=== PATIENT | female | born 1965 | race Caucasian/White ===

== ENCOUNTER 2017-01-26 16:12 | Emergency (ER) | payer OTHER ==
[2017-01-26] MEDS ORDERED: SODIUM CHLORIDE 0.9% 1,000 ML IV STA (16:33)
--- NOTE | 2017-01-26 16:36 | ED ---
General Adult HPI - General Chief complaint: Chest Pain Stated complaint: Chest Pain Time Seen by Provider: 01/26/17 16:33 Source: patient, RN notes reviewed, old records reviewed Mode of arrival: wheelchair Limitations: no limitations - History of Present Illness Initial comments: This is a 51-year-old female ER prevention of chest pain. Patient is having chest pain with radiation to left arm. Patient has no history of chest pain, no history of her blood pressure normally claustrum no diabetes nonsmoker. History of multiple surgeries. Patient denies fever no cough no congestion or shortness of breath no diaphoresis. - Related Data Home Medications Medication Instructions Recorded Confirmed ALPRAZolam [Xanax] 1 mg PO Q12H PRN 01/26/17 01/26/17 Ascorbic Acid [Vitamin C] 500 mg PO DAILY 01/26/17 01/26/17 Cholecalciferol [Vitamin D3] 1,000 unit PO DAILY 01/26/17 01/26/17 Cranberry Fruit Concentrate 450 mg PO DAILY 01/26/17 01/26/17 [Cranberry] Cyanocobalamin [Vitamin B-12 1,000 mcg SQ Q14D 01/26/17 01/26/17 Injection] Cyanocobalamin [Vitamin B-12] 500 mcg PO DAILY 01/26/17 01/26/17 DULoxetine HCL [Cymbalta] 30 tab PO BID 01/26/17 01/26/17 Estradiol 2 mg PO DAILY 01/26/17 01/26/17 Gabapentin 800 mg PO TID 01/26/17 01/26/17 Garcinia 1 tab PO DAILY 01/26/17 01/26/17 Garlic 1 tab PO DAILY 01/26/17 01/26/17 Hydrocodone/Acetaminophen [Lorcet 1 tab PO Q8H PRN 01/26/17 01/26/17 Hd 10-325 mg Tablet] Ipratropium/Albuterol Sulfate 1 puff INHALATION RT-QID 01/26/17 01/26/17 [Combivent Respimat Inhaler] Milk Thistle 150 mg PO DAILY 01/26/17 01/26/17 Omeprazole 40 mg PO BID 01/26/17 01/26/17 Zolpidem [Ambien] 10 mg PO HS PRN 01/26/17 01/26/17 traMADol HCL [Ultram] 50 mg PO DAILY PRN 01/26/17 01/26/17 Previous Rx's Medication Instructions Recorded Naproxen [Naprosyn] 500 mg PO Q12HR #60 tab 01/26/17 Allergies Allergy/AdvReac Type Severity Reaction Status Date / Time cephalexin [From Keflex] Allergy Swelling Verified 01/26/17 16:55 Review of Systems ROS Statement: Those systems with pertinent positive or pertinent negative responses have been documented in the HPI. ROS Other: All systems not noted in ROS Statement are negative. Past Medical History Past Medical History: No Reported History History of Any Multi-Drug Resistant Organisms: None Reported Past Surgical History: Appendectomy, Section, Hysterectomy, Orthopedic Surgery, Tonsillectomy Past Psychological History: No Psychological Hx Reported Smoking Status: Current every day smoker Past Alcohol Use History: None Reported Past Drug Use History: None Reported General Exam Limitations: no limitations General appearance: alert, in no apparent distress Head exam: Present: atraumatic, normocephalic, normal inspection Eye exam: Present: normal appearance, PERRL, EOMI. Absent: scleral icterus, conjunctival injection, periorbital swelling ENT exam: Present: normal exam, mucous membranes moist Neck exam: Present: normal inspection. Absent: tenderness, meningismus, lymphadenopathy Respiratory exam: Present: normal lung sounds bilaterally. Absent: respiratory distress, wheezes, rales, rhonchi, stridor Cardiovascular Exam: Present: regular rate, normal rhythm, normal heart sounds. Absent: systolic murmur, diastolic murmur, rubs, gallop, clicks GI/Abdominal exam: Present: soft, normal bowel sounds. Absent: distended, tenderness, guarding, rebound, rigid Extremities exam: Present: normal inspection, full ROM, normal capillary refill. Absent: tenderness, pedal edema, joint swelling, calf tenderness Back exam: Present: normal inspection Neurological exam: Present: alert, oriented X3, CN II-XII intact Psychiatric exam: Present: normal affect, normal mood Skin exam: Present: warm, dry, intact, normal color. Absent: rash Course Vital Signs 01/26/17 16:18 Temperature 98.2 F Pulse Rate 69 Respiratory 18 Rate Blood Pressure 119/75 O2 Sat by Pulse 98 Oximetry - Reevaluation(s) Reevaluation #1: 01/26/17 18:07 Patient having no acute stroke heart or chest pain, no acute shortness of breath Reevaluation #2: 01/26/17 18:08 Greater than 15 minutes very low risk for heart disease, advised to quit smoking , questions answered regarding muscle strain and sprain. Patient will be discharged home Medical Decision Making - Medical Decision Making 51 female here for evaluation of left-sided neck pain and left arm pain. EKG and x-ray negative troponin is negative. Patient does have tenderness over left trapezius worse with left shoulder movement, patient will be discharged home with anti-inflammatories - Lab Data Result diagrams: 01/26/17 16:53 01/26/17 16:53 Lab Results 01/26/17 01/26/17 01/26/17 Range/Units 16:53 16:53 16:53 WBC 6.0 (3.8-10.6) k/uL RBC 4.53 (3.80-5.40) m/uL Hgb 13.9 (11.4-16.0) gm/dL Hct 42.6 (34.0-46.0) % MCV 94.0 (80.0-100.0) fL MCH 30.7 (25.0-35.0) pg MCHC 32.7 (31.0-37.0) g/dL RDW 11.9 (11.5-15.5) % Plt Count 201 (150-450) k/uL Neutrophils % 46 % Lymphocytes % 40 % Monocytes % 7 % Eosinophils % 3 % Basophils % 1 % Neutrophils # 2.8 (1.3-7.7) k/uL Lymphocytes # 2.4 (1.0-4.8) k/uL Monocytes # 0.4 (0-1.0) k/uL Eosinophils # 0.2 (0-0.7) k/uL Basophils # 0.1 (0-0.2) k/uL PT (9.0-12.0) sec INR (<1.1) APTT (22.0-30.0) sec Sodium 140 (137-145) mmol/L Potassium 5.2 H (3.5-5.1) mmol/L Chloride 104 (98-107) mmol/L Carbon Dioxide 27 (22-30) mmol/L Anion Gap 9 mmol/L BUN 15 (7-17) mg/dL Creatinine 0.66 (0.52-1.04) mg/dL Est GFR (MDRD) Af Amer >60 (>60 ml/min/1.73 sqM) Est GFR (MDRD) Non-Af >60 (>60 ml/min/1.73 sqM) Glucose 65 L (74-99) mg/dL Calcium 9.4 (8.4-10.2) mg/dL Magnesium 1.7 (1.6-2.3) mg/dL Total Bilirubin 1.6 H (0.2-1.3) mg/dL AST 123 H (14-36) U/L ALT 98 H (9-52) U/L Alkaline Phosphatase 59 (38-126) U/L Total Creatine Kinase 97 (30-135) U/L CK-MB (CK-2) 0.8 (0.0-2.4) ng/mL CK-MB (CK-2) Rel Index 0.8 Troponin I <0.012 (0.000-0.034) ng/mL NT-Pro-B Natriuret Pep pg/mL Total Protein 7.9 (6.3-8.2) g/dL Albumin 4.5 (3.5-5.0) g/dL Lipase 87 (23-300) U/L 01/26/17 01/26/17 Range/Units 16:53 16:53 WBC (3.8-10.6) k/uL RBC (3.80-5.40) m/uL Hgb (11.4-16.0) gm/dL Hct (34.0-46.0) % MCV (80.0-100.0) fL MCH (25.0-35.0) pg MCHC (31.0-37.0) g/dL RDW (11.5-15.5) % Plt Count (150-450) k/uL Neutrophils % % Lymphocytes % % Monocytes % % Eosinophils % % Basophils % % Neutrophils # (1.3-7.7) k/uL Lymphocytes # (1.0-4.8) k/uL Monocytes # (0-1.0) k/uL Eosinophils # (0-0.7) k/uL Basophils # (0-0.2) k/uL PT 9.7 (9.0-12.0) sec INR 0.9 (<1.1) APTT 24.9 (22.0-30.0) sec Sodium (137-145) mmol/L Potassium (3.5-5.1) mmol/L Chloride (98-107) mmol/L Carbon Dioxide (22-30) mmol/L Anion Gap mmol/L BUN (7-17) mg/dL Creatinine (0.52-1.04) mg/dL Est GFR (MDRD) Af Amer (>60 ml/min/1.73 sqM) Est GFR (MDRD) Non-Af (>60 ml/min/1.73 sqM) Glucose (74-99) mg/dL Calcium (8.4-10.2) mg/dL Magnesium (1.6-2.3) mg/dL Total Bilirubin (0.2-1.3) mg/dL AST (14-36) U/L ALT (9-52) U/L Alkaline Phosphatase (38-126) U/L Total Creatine Kinase (30-135) U/L CK-MB (CK-2) (0.0-2.4) ng/mL CK-MB (CK-2) Rel Index Troponin I (0.000-0.034) ng/mL NT-Pro-B Natriuret Pep 79 pg/mL Total Protein (6.3-8.2) g/dL Albumin (3.5-5.0) g/dL Lipase (23-300) U/L - Radiology Data Radiology results: report reviewed (Chest x-ray is negative for acute disease), image reviewed Disposition Clinical Impression: Atypical chest pain, Chest pain, Arm paresthesia, left Disposition: HOME SELF-CARE Condition: Good Instructions: Shoulder Sprain (ED), Cervical Strain (ED) Prescriptions: Naproxen [Naprosyn] 500 mg PO Q12HR #60 tab Referrals: Luis Antonio Galloway MD [Primary Care Provider] - 1-2 days
[2017-01-26 17:18] LABS: Basophils # (A) 0.1 k/uL (0-0.2); Basophils % (A) 1 %; CH 31.1; CHCM 33.2; Eosinophils # (A) 0.2 k/uL (0-0.7); Eosinophils % (A) 3 %; HCT 42.6 % (34.0-46.0); HDW 2.24; HGB 13.9 gm/dL (11.4-16.0); Luc % (Auto) 3; Lymphocytes # (A) 2.4 k/uL (1.0-4.8); Lymphocytes % (A) 40 %; MCH 30.7 pg (25.0-35.0); MCHC 32.7 g/dL (31.0-37.0); Mean Platelet Volume 7.2; Monocytes # (A) 0.4 k/uL (0-1.0); Monocytes % (A) 7 %; Neutrophils # (A) 2.8 k/uL (1.3-7.7); Neutrophils % (A) 46 %; RBC 4.53 m/uL (3.80-5.40); RDW 11.9 % (11.5-15.5); WBC (Perox) 6.17
[2017-01-26 17:21] LABS: INR 0.9 (<1.1); Prothrombin Time 9.7 sec (9.0-12.0)
[2017-01-26 17:22] LABS: Partial Thromboplastin Time 24.9 sec (22.0-30.0)
[2017-01-26 17:24] LABS: ALT 98 U/L (9-52); AST 123 U/L (14-36); Alkaline Phosphatase 59 U/L (38-126); Anion Gap 9 mmol/L; Blood Urea Nitrogen 15 mg/dL (7-17); Calcium 9.4 mg/dL (8.4-10.2); Carbon Dioxide 27 mmol/L (22-30); Chloride 104 mmol/L (98-107); Glucose 65 mg/dL (74-99); Magnesium 1.7 mg/dL (1.6-2.3); Non-African American GFR(MDRD) >60 (>60 ml/min/1.73 sqM); Sodium 140 mmol/L (137-145); Total Bilirubin 1.6 mg/dL (0.2-1.3); Total Protein 7.9 g/dL (6.3-8.2)
[2017-01-26 17:25] LABS: Potassium 5.2 mmol/L (3.5-5.1)
[2017-01-26 17:35] LABS: Creatine Kinase 97 U/L (30-135)
--- NOTE | 2017-01-26 17:38 | XR ---
EXAMINATION TYPE: XR chest 2V DATE OF EXAM: 01/26/2017 5:24 PM COMPARISON: NONE HISTORY: Chest pain TECHNIQUE: Frontal and lateral views of the chest are obtained. FINDINGS: Heart and mediastinum are normal. Lungs are clear. Diaphragm is normal. Bony thorax is int act. IMPRESSION: Normal chest
[2017-01-26 17:48] LABS: Creatine Kinase MB 0.8 ng/mL (0.0-2.4); Troponin I <0.012 ng/mL (0.000-0.034)
[2017-01-26] MEDS ORDERED: KETOROLAC 30 MG/ML 1 ML VIAL IVP STA (18:07)
[2017-01-26 18:16] VITALS: BP 114/57; PULSE 77; RESP 16
[2017-01-26 18:20] VITALS: TEMP 97.9
== END 2017-01-26 18:20 | disposition home or self-care (01) ==
LOC: EC 16:12
DX: R07.89 Other chest pain (principal); R20.9 Unspecified disturbances of skin sensation; M54.2 Cervicalgia; F17.200 Nicotine dependence, unspecified, uncomplicated; Z79.3 Long term (current) use of hormonal contraceptives; Z79.899 Other long term (current) drug therapy; Z88.1 Allergy status to other antibiotic agents
CPT/HCPCS: 36415; 93005; 83880; 80053; 82550; 82553; 83690; 83735; 84484; 85025; 85610; 85730; 71020; 99285; 96374; 96361; J1885